=== PATIENT | male | born 1955 | race Caucasian/White ===

== ENCOUNTER → 2017-08-17 | Outpatient (CLI) | payer OTHER ==
[2014-01-22 15:53] VITALS: BMI 22.1
== END ==
LOC: LAB 09:11
PROVIDERS: ATTEND Internal Medicine
DX: R73.09 Other abnormal glucose (principal); D17.20 Benign lipomatous neoplasm of skin and subcutaneous tissue of unspecified limb; N39.0 Urinary tract infection, site not specified
CPT/HCPCS: 81001

== ENCOUNTER 2018-09-18 01:41 | Day surgery (SDC) | payer OTHER ==
[2014-01-22 15:53] VITALS: Ht 176.5 cm; Wt 68.5 kg
[~2018-09-18] VITALS: Ht 176.5 cm; Wt 68.5 kg
[2018-09-18] MEDS ORDERED: fentaNYL CITR 100 MCG/2 ML AMP ONE (09:36)
[2018-09-18] MEDS ORDERED: ONDANSETRON 4 MG/2 ML VIAL ONE (09:38)
[2018-09-18] MEDS ORDERED: LIDOCAINE MPF 1% 5 ML VIAL ONE (09:38)
[2018-09-18] MEDS ORDERED: PROPOFOL EMUL(*) 10MG/ML 20 ML 20 ML ONE (09:38)
[2018-09-18] MEDS ORDERED: DEXAMETHASONE SOD 4 MG/ML VIAL ONE (09:39)
[2018-09-18 10:38] VITALS: BP 138/97
[2018-09-18] MEDS ORDERED: ROPIVACAINE 0.5% 20 ML VIAL ONE (10:58)
[2018-09-18] MEDS ORDERED: LIDOCAINE/SOD BICARB 8.4% SYR ID ONE (11:30)
[2018-09-18] MEDS ORDERED: ceFAZolin(*) 2GM/D5W 50ML 50 ML IVPB ONE (11:35)
[2018-09-18] MEDS ORDERED: NORMOSOL R SOLN(*) 1000 ML BAG 1,000 ML IV PRN (11:35)
[2018-09-18] MEDS ORDERED: FAMOTIDINE 20 MG TAB PO ONE (11:35)
[2018-09-18] MEDS ORDERED: MIDAZOLAM 2 MG/2 ML VIAL IVP PRN (11:35)
--- NOTE | 2018-09-18 12:58 | Short(Outpt) Discharge Summary ---
Discharge Summary Reason for Hosp/Final Diag: (1) Lipoma of arm Status: Chronic Hospital Course & Plan: Right shoulder mass removed without problems. (2) Colon cancer screening Status: Chronic Hospital Course & Plan: Colonoscopy with polypectomy x2 (1 retrieved) completed without problems. Departure Discharge to: Home, Self Care Discharge Instructions Home Meds Discontinued Reported Medications [None] No Conflict Check, 0 Refills 01/25/09 Follow up Referrals: General Surgery - 10/02/18 @ Surgery, General with JANEL NG MD You have a follow up appointment scheduled with Dr. Ng on 10/02/18, at 2:00pm. Diet: Regular Activity: As Tolerated Special Instructions: You may remove the white surgical dressing from your right shoulder on 09/30/18, then you can shower. After showering, leave the incision open to air but leave the steristrips in place until they fall off on their own. Do not immerse the incision for 2 weeks. Problem Qualifiers (1) Lipoma of arm: Laterality: right Qualified Codes: D17.21 - Benign lipomatous neoplasm of skin and subcutaneous tissue of right arm JANEL NG MD Sep 18, 2018 12:58
--- NOTE | 2018-09-18 13:06 | Post Operative Progress Note ---
Post Operative Progress Note Date: Sep 18, 2018 Time: 12:59 Surgeon: Greg Dictation number: [id number] Anesthesia: LMA by Dr. Edouard Pre-Op Diagnosis: 1) Right shoulder mass 2) CRC screening, average risk Post-Op Diagnosis: 1) Right shoulder mass 2) Colon polyps x2 Findings: Mass c/w benign lipoma 2 small polyps removed from colon (1 from splenic flexure, retrieved, 1 from sigmoid colon, not retrieved) Good prep Withdrawal time 25 minutes Procedure(s): 1) Excision of right shoulder mass 2) colonoscopy with snare polypectomy Specimen Removed:(May be N/A): 1) right shoulder mass 2) splenic flexure polyp Complications: None Fluids: See anesthesia record Estimated Blood Loss: Minimal Date OP Note Dictated: Sep 18, 2018 Time OP Note Dictated: 13:01 JANEL NG MD Sep 18, 2018 13:06
[2018-09-18 13:30] VITALS: BP 141/88
[2018-09-18 13:44] VITALS: BP 141/84
[2018-09-18 13:47] VITALS: BP 128/86
--- NOTE | 2018-09-18 14:38 | OPERATIVE REPORT 1 ---
EVENT DATE: September 18, 2018 SURGEON: Taye Garza MD ANESTHESIOLOGIST: Michael Edouard MD ANESTHESIA: LMA. PREOPERATIVE DIAGNOSES 1. Colorectal cancer screening, average risk. 2. Right shoulder subcutaneous mass. POSTOPERATIVE DIAGNOSES 1. Colorectal cancer screening, average risk. 2. Right shoulder subcutaneous mass. 3. Colon polyps times two. PROCEDURES PERFORMED 1. Excision of right shoulder mass. 2. Colonoscopy with snare polypectomy. COMPLICATIONS None. SPECIMENS 1. Right shoulder mass. 2. Splenic flexure polyp. 1. Colorectal cancer screening, average risk. 2. Right shoulder subcutaneous mass. FINDINGS This patient's shoulder mass appeared to be consistent with a benign lipoma. His colonoscopy was completed without any problems, and the prep was good. I removed two polyps, one from his splenic flexure and one from the sigmoid colon. However, we were unable to retrieve the sigmoid colon polyp, and so, we only sent one polyp from the splenic flexure to Pathology. Withdrawal time was 25 minutes. INDICATIONS A 63-year-old gentleman who presented to my office for a screening colonoscopy. He also had a subcutaneous mass on his right shoulder on the lateral aspect, and he wanted to have it removed at the same time. His last colonoscopy was over 10 years ago and was apparently normal. DESCRIPTION OF PROCEDURE Patient was brought to the operating room and placed supine on the operating table. LMA anesthesia was administered, and his right shoulder was elevated on a gel pad, and then it was prepped and draped in a sterile fashion. Timeout was completed. I marked the skin overlying the mass parallel with Manuel lines and then anesthetized the skin with 0.5% ropivacaine plain. I made an incision where I marked the skin, dissected through the dermis and subcutaneous fat and popped into the space where the fatty tumor was located. Then, I bluntly dissected around it and then removed it from the wound rather easily. I then irrigated and dried the wound and closed the wound with running 3-0 Vicryl fascial sutures, and the skin was closed with running 3-0 Vicryl deep dermal sutures and then 4-0 Monocryl running subcuticular sutures. Skin was cleaned and dried, and Steri-Strips were applied, followed by sterile surgical dressing. He was then placed in the left lateral decubitus position, and the colonoscope was set up and tested to ensure it was completely functional. It was then lubricated and inserted into his rectum through his anus. I advanced the scope all the way through to the cecum and slowly withdrew the scope as I looked at all the mucosal surfaces for any abnormalities. There was about a 5 mm polyp at the splenic flexure. I removed it easily with the snare and retrieved this in the trap and sent it to Pathology. There was another one in the mid sigmoid colon that I removed with a snare, but for whatever reason, they were unable to retrieve it from the trap. There were no other polyps found. The prep was good, and I got a good look at his entire colon. Withdrawal time was 25 minutes. I did look at the rectum, and I even retroflexed the scope to look at the distal rectum and upper anal canal, and this was normal. I then desufflated the colon and removed the colonoscope. He was then awakened and LMA removed. He was transported to the recovery room in stable condition having tolerated the procedure without any apparent problems. DANAE
== END 2018-09-18 13:30 | disposition home or self-care (01) ==
LOC: OR 01:41
PROVIDERS: ATTEND Surgery
DX: Z12.11 Encounter for screening for malignant neoplasm of colon (principal); K63.5 Polyp of colon; D17.21 Benign lipomatous neoplasm of skin and subcutaneous tissue of right arm
CPT/HCPCS: 00811; 23071; 45385; 88305; J1100; J2001; J2405; J2704; J2795; J3010; J0690